=== PATIENT | female | born 1950 | race Caucasian/White ===

== ENCOUNTER → 2024-04-13 | Outpatient (REF) | payer MEDICARE, BC ==
[~2024-04-13] MED LIST: ASPIRIN81 MG PO; BIOTIN PLUS 5,1 EACH; BIOTIN2500 MCG; D3-5000125 MCG; DICLOFENAC PO; LEVOTHYROXINE50 MCG PO; MAGNESIUM OXID400 MG PO; OYSTER SHELL 51 EACH PO; SERTRALINE HCL50 MG PO; SIMVASTATIN40 MG PO; VITAMIN C1000 MG PO; ZINC PO
[2024-04-13 10:33] LABS: ALBUMIN 4.1 g/dL (3.5-5.0); ALBUMIN/GLOBULIN RATIO 1.5 (0.8-2.0); ANION GAP 13.7 mmol/L (8-16); BILIRUBIN,TOTAL 0.6 mg/dL (0.2-1.2); CALCIUM 9.8 mg/dL (8.4-10.2); CHOL/HDL RATIO 2.4 (3.0-3.6); CREATININE, SERUM 0.89 mg/dL (0.57-1.11); POTASSIUM 3.7 mmol/L (3.5-5.1); TOTAL PROTEIN 6.8 g/dL (6.5-8.1)
[2024-04-13 10:53] LABS: THYROID STIMULATING HORMONE 2.069 uIU/mL (0.350-4.940)
== END ==
LOC: LAB 09:42
PROVIDERS: ATTEND Nurse Practitioner Family
DX: I10 Essential (primary) hypertension (principal); E03.8 Other specified hypothyroidism; E78.2 Mixed hyperlipidemia
CPT/HCPCS: 36415; 80053; 80061; 84443

== ENCOUNTER → 2024-04-16 | Day surgery (SDC) | payer MEDICARE, BC ==
[2024-04-13 10:04] LABS: BASOPHILS % 0.6 % (0.0-1.0); EOSINOPHILS # (AUTO) 0.1 (0.0-0.4); EOSINOPHILS % 1.7 % (0.0-6.0); HEMATOCRIT 41.7 % (34.2-44.1); HEMOGLOBIN 13.1 g/dL (12.0-16.0); LYMPHOCYTES # (AUTO) 1.1 (1.0-3.2); MEAN CORPUSCULAR HEMOGLOBIN 30.6 pg (28-32); MEAN CORPUSCULAR HGB CONC 31.4 g/dL (31-35); MEAN CORPUSCULAR VOLUME 97.4 fL (81-99); MONOCYTES # (AUTO) 0.6 (0.2-0.8); MONOCYTES % 10.2 % (4.4-11.3); NEUTROPHILS # (AUTO) 3.6 (2.1-6.9); NEUTROPHILS % 66.1 % (38.7-80.0); PLATELET COUNT 232 x10e3/uL (140-360); RED BLOOD COUNT 4.28 x10e6/uL (3.6-5.1); RED CELL DISTRIBUTION WIDTH 13.5 % (11.7-14.4); WHITE BLOOD COUNT 5.37 x10e3/uL (4.8-10.8)
[~2024-04-16] MED LIST changes: +ACETAMINOPHEN 1000 MG/100 ML IV PRN; +ASPIRIN 325 MG TAB PO SCH; +CELECOXIB 100 MG CAP PO SCH; +DEXAMETHASONE 10MG/ML PF INJ ONE; +DIPHENHYDRAMINE HCL INJ 50 MG/ML VIAL IV PRN; +DOCUSATE SODIUM 100 MG CAP PO PRN; +EPHEDRINE SULFATE INJ 50 MG/ML VIAL ONE; +EPINEPHRINE HCL 1:1000 1ML 1 MG/ML AMP ONE; +FENTANYL CITRATE/PF 100MCG/2 ML INJ ONE; +HYDRALAZINE HCL 20 MG/ML VIAL ONE; +HYDROCODONE/APAP 5MG-325MG TAB PO PRN; +HYDROCODONE/APAP 7.5MG-325MG 1 EA TAB PO PRN; +KETAMINE HCL INJ 50 MG/ML 10 ML VIAL ONE; +LIDOCAINE HCL 2% LOCAL INJ 5 ML SDV VIAL INJ ONE; +MIDAZOLAM HCL 2 MG/2 ML VIAL ONE; +ONDANSETRON HCL INJ 2MG/ML 2ML 2 MG/ML VIAL IV PRN; +ONDANSETRON HCL INJ 2MG/ML 2ML 2 MG/ML VIAL ONE; +PROPOFOL IV EMULSION 10 MG/ML 20 ML VIAL ONE; +ROPIVACAINE 0.5% 5 MG/ML 30 ML SDV ONE; +ROPIVACAINE/EPI/CLONIDINE/KET 50 ML SYRINGE INJ ONE; +SEVOFLURANE INHAL SOLN 250 ML PEN BTL ONE; +SODIUM CHLORIDE 0.9% 1000ML 1,000 ML IV SCH
[2024-04-16] MEDS: CEFAZOLIN SODIUM 2 GM ONE (06:16)
[2024-04-16] MEDS: CELECOXIB 200 MG CAP ONE (06:17)
[2024-04-16] MEDS: LACTATED RINGER'S 1,000 ML ONE (06:17)
[2024-04-16] MEDS: GABAPENTIN 300 MG CAP ONE (06:17)
[2024-04-16] MEDS: DEXAMETHASONE SOD PHOS 10 MG/1 ML VIAL ONE (06:18)
[2024-04-16 08:42] VITALS: TEMP 98.6
[2024-04-16] MEDS: METOPROLOL TARTRATE INJ 1 MG/ML VIAL ONE (09:00)
[2024-04-16 09:30] VITALS: BP 120/56; PULSE 98; RESP 18; O2SAT 98
== END | disposition home health service (06) ==
LOC: OR 05:24
PROVIDERS: ATTEND Specialist
DX: M17.12 Unilateral primary osteoarthritis, left knee (principal); E78.5 Hyperlipidemia, unspecified; F41.9 Anxiety disorder, unspecified; F32.A Depression, unspecified; E03.9 Hypothyroidism, unspecified; Z01.812 Encounter for preprocedural laboratory examination; Z79.899 Other long term (current) drug therapy
CPT/HCPCS: 27447; 36415; 73560; 85025; 86850; 86900; 97110; 97116; 97161; C1713 ×2; C1776 ×3; J0171; J0360; J1100; J2003; J2250; J2405; J2704; J2795; J3010; J7121

== ENCOUNTER → 2025-01-25 | Day surgery (SDC) | payer MEDICARE, BC ==
[2025-01-24 10:32] LABS: BASOPHILS % 0.6 % (0.0-1.0); EOSINOPHILS % 1.3 % (0.0-6.0); LYMPHOCYTES % 19.7 % (18.0-39.1); MONOCYTES % 8.8 % (4.4-11.3); NEUTROPHILS % 69.2 % (38.7-80.0); RED CELL DISTRIBUTION WIDTH 13.4 % (11.7-14.4)
[2025-01-24 10:44] LABS: EST GLOMERULAR FILTRATION RATE 69.0 ML/MIN (>=60)
[~2025-01-25] MED LIST changes: +ACETAMINOPHEN 1000 MG/100 ML 100 ML IV ONE; -ACETAMINOPHEN 1000 MG/100 ML IV PRN; -ASPIRIN 325 MG TAB PO SCH; +B-12 5,000 MCG1 EACH; +CALCITRIOL0.25 MCG PO; -CELECOXIB 100 MG CAP PO SCH; -DEXAMETHASONE 10MG/ML PF INJ ONE; +DEXAMETHASONE SOD PHOS INJ 4 MG/ML SDV ONE; -DIPHENHYDRAMINE HCL INJ 50 MG/ML VIAL IV PRN; -DOCUSATE SODIUM 100 MG CAP PO PRN; -EPINEPHRINE HCL 1:1000 1ML 1 MG/ML AMP ONE; -HYDRALAZINE HCL 20 MG/ML VIAL ONE; -HYDROCODONE/APAP 5MG-325MG TAB PO PRN; -HYDROCODONE/APAP 7.5MG-325MG 1 EA TAB PO PRN; -KETAMINE HCL INJ 50 MG/ML 10 ML VIAL ONE; -MIDAZOLAM HCL 2 MG/2 ML VIAL ONE; -ONDANSETRON HCL INJ 2MG/ML 2ML 2 MG/ML VIAL IV PRN; +PHENYLEPHRINE HCL 1% 10 MG/ML VIAL ONE; +ROCURONIUM BROMIDE 1 ML IV ONE; -ROPIVACAINE 0.5% 5 MG/ML 30 ML SDV ONE; -ROPIVACAINE/EPI/CLONIDINE/KET 50 ML SYRINGE INJ ONE; -SODIUM CHLORIDE 0.9% 1000ML 1,000 ML IV SCH; +SODIUM CHLORIDE 0.9% INJ 10 ML VIAL ONE; +SUCCINYLCHOLINE CHLORIDE 20 MG/ML 10ML VIAL ONE
[2025-01-25] MEDS: CEFAZOLIN SODIUM 2 GM ONE (05:49)
[2025-01-25] MEDS: LACTATED RINGER'S 1,000 ML ONE (05:49)
[2025-01-25 09:34] VITALS: TEMP 97.8
[2025-01-25] MEDS: FENTANYL CITRATE/PF 100MCG/2 ML INJ ONE (09:46)
[2025-01-25] MEDS: HYDROCODONE/APAP 7.5MG-325MG 1 EA TAB ONE (10:10)
[2025-01-25 10:45] VITALS: BP 140/72; PULSE 74; RESP 16; O2SAT 99
== END | disposition home or self-care (01) ==
LOC: OR 05:16
PROVIDERS: ATTEND Podiatrist Foot Surgery
DX: M19.071 Primary osteoarthritis, right ankle and foot (principal); M20.41 Other hammer toe(s) (acquired), right foot; E03.9 Hypothyroidism, unspecified; E78.5 Hyperlipidemia, unspecified; Z79.890 Hormone replacement therapy; Z79.899 Other long term (current) drug therapy; Z01.810 Encounter for preprocedural cardiovascular examination; Z01.812 Encounter for preprocedural laboratory examination
CPT/HCPCS: 36415; 76000; 80048; 85025; 93005; C1713; C1734; J0330; J1100; J2003; J2371; J2405